=== PATIENT | female | born 1950 | race Two or more races ===

== ENCOUNTER 2021-10-19 06:08 | Inpatient (IN) | payer OTHER ==
[2021-10-19] VITALS (9 sets, daily range): BP systolic 100–130; BP diastolic 46–76
[~2021-10-19] VITALS: Ht 162.6 cm; Wt 68.0 kg
[~2021-10-19 06:08] MED LIST: ALEN70TA74 PO; ATEN-60 PO; CALC667C5 PO; FOLITAB22 OR; LEVO75TA6 PO; METH2.5T PO
[2021-10-19] MEDS ORDERED: BUPIVACAINE W/ EPINEPH 0.5% INJ 50ML MDV IJ ONE (06:47)
[2021-10-19] MEDS ORDERED: TRANEXAMIC ACID 20 ML ONE (06:47)
[2021-10-19] MEDS ORDERED: VANCOMYCIN HCL 1000 MG VL ONE ×2 (06:49→07:06)
[2021-10-19] MEDS ORDERED: PREGABALIN CAPSULE 75 MG CAP PO ONE (07:00)
[2021-10-19] MEDS ORDERED: ACETAMINOPHEN IV 1000 MG/100ML (10MG/ML) IV ONE (07:00)
[2021-10-19] MEDS ORDERED: CELECOXIB 100 MG CAP PO ONE (07:00)
[2021-10-19] MEDS ORDERED: KETOROLAC TROMETH 30 MG/ML 1ML VIAL ONE (07:00)
[2021-10-19] MEDS ORDERED: ACETAMINOPHEN IV 100 ML IV ONE (07:07)
[2021-10-19] MEDS ORDERED: PREGABALIN CAPSULE 75 MG CAP ONE (07:07)
[2021-10-19] MEDS ORDERED: CELECOXIB 100 MG CAP ONE (07:07)
[2021-10-19] MEDS ORDERED: MORPHINE SULFATE 4 MG/ML SYR/VIAL ONE (07:09)
[2021-10-19] MEDS ORDERED: TETRACAINE 1% INJ 2 ML VIAL IJ ONE (07:11)
[2021-10-19] MEDS ORDERED: MIDAZOLAM HCL 2MG/2ML 2ml VIAL (1mg/ml) ONE (07:19)
[2021-10-19] MEDS ORDERED: fentaNYL CITRATE 100 MCG/2 ML VL ONE (07:19)
[2021-10-19] MEDS ORDERED: MORPHINE SULF PF 5 MG/10 ML VIAL ONE (07:24)
[2021-10-19] MEDS ORDERED: DexAMETHasone SOD PHOS 10MG/1ML VIAL INJ ONE (08:04)
[2021-10-19] MEDS ORDERED: PROPOFOL 10 MG/ML 20 ML IV ONE (08:09)
[2021-10-19] MEDS ORDERED: BISACODYL 5 MG EC TAB PO PRN (08:15)
[2021-10-19] MEDS ORDERED: KETOROLAC TROMETH 30 MG/ML 1ML VIAL IV PRN (08:15)
[2021-10-19] MEDS ORDERED: ceFAZolin 1GM/50ML 50 ML IV SCH (08:15)
[2021-10-19] MEDS: LACTATED RINGER'S 1,000 ML IV SCH ×2 (08:15→18:18)
[2021-10-19] MEDS ORDERED: NITROGLYCERIN 0.4 MG SL TAB SL PRN (08:15)
[2021-10-19] MEDS ORDERED: MORPHINE SULFATE INJ 2 MG/ml SYRG IV PRN (08:15)
[2021-10-19] MEDS ORDERED: ONDANSETRON ODT 4 MG TAB PO PRN (08:15)
[2021-10-19] MEDS ORDERED: MIDAZOLAM HCL 2MG/2ML 2ml VIAL (1mg/ml) IV PRN (09:15)
[2021-10-19] MEDS ORDERED: ePHEDrine SULFATE 50 MG/ML AMP IV PRN (09:15)
[2021-10-19] MEDS ORDERED: LABETALOL HCL 5 MG/ML 4ML SYRINGE IV PRN (09:15)
[2021-10-19] MEDS ORDERED: NALOXONE HCL 0.4 MG/ML VIAL IV PRN (09:15)
[2021-10-19] MEDS ORDERED: DexAMETHasone SOD PHOS 10MG/1ML VIAL INJ IV PRN (09:15)
[2021-10-19] MEDS ORDERED: HYDROmorphone HCL 2 MG/ML VL/or syr IV PRN (09:15)
[2021-10-19] MEDS ORDERED: ONDANSETRON HCL 4 MG/2 ML VIAL IV PRN (09:15)
[2021-10-19] MEDS ORDERED: diphenhdrAMINE HCL 50 MG/1 ML VL IV PRN (09:15)
[2021-10-19] MEDS ORDERED: NALBUPHINE HCL 10 MG/1ml INJECTION SUBCUT ONE (09:15)
[2021-10-19] MEDS: CALCIUM ACETATE 667 MG CAP PO SCH (10:00)
[2021-10-19] MEDS: ATENOLOL 25 MG TAB PO SCH (10:00)
[2021-10-19] MEDS: DOCUSATE SOD 100 MG CAP PO SCH ×2 (10:00→22:23)
[2021-10-19] MEDS: LEVOTHYROXINE SODIUM 50 MCG TAB PO SCH (10:00)
[2021-10-19] MEDS ORDERED: ENOXAPARIN SOD 40 MG/0.4 ML SYRINGE SC SCH (10:00)
[2021-10-19] MEDS: PANTOPRAZOLE 40 MG TAB PO SCH (10:00)
[2021-10-19] MEDS: LEVOTHYROXINE SODIUM 25 MCG TAB PO SCH (10:00)
[2021-10-19] MEDS: SODIUM CHLOR 0.9% PF (SALINE LOCK) 10ML VIAL/SYR IV SCH ×2 (14:00→22:22)
[2021-10-20] VITALS (10 sets, daily range): BP systolic 100–137; BP diastolic 54–94
[2021-10-20] MEDS: LACTATED RINGER'S 1,000 ML IV SCH ×2 (04:15→15:58)
[2021-10-20 05:27] LABS: Hematocrit 32.3 % (36.0-46.0); Hemoglobin 10.8 g/dL (12.2-16.2)
[2021-10-20 05:39] LABS: Potassium 4.2 mmol/L (3.5-5.1)
[2021-10-20 05:43] LABS: Albumin 2.8 g/dL (3.4-5.0); BUN/Creatinine Ratio 22.7; Calcium 8.2 mg/dL (8.5-10.1)
[2021-10-20 05:47] LABS: Bilirubin, Total 0.4 mg/dL (0.2-1.0); Total Protein 5.5 g/dL (6.4-8.2)
[2021-10-20] MEDS: SODIUM CHLOR 0.9% PF (SALINE LOCK) 10ML VIAL/SYR IV SCH ×3 (05:58→21:53)
[2021-10-20] MEDS: LEVOTHYROXINE SODIUM 25 MCG TAB PO SCH (10:00)
[2021-10-20] MEDS: LEVOTHYROXINE SODIUM 50 MCG TAB PO SCH (10:00)
[2021-10-20] MEDS: DOCUSATE SOD 100 MG CAP PO SCH ×2 (10:44→21:53)
[2021-10-20] MEDS: CALCIUM ACETATE 667 MG CAP PO SCH (10:45)
[2021-10-20] MEDS: PANTOPRAZOLE 40 MG TAB PO SCH (10:46)
[2021-10-20] MEDS: ATENOLOL 25 MG TAB PO SCH (10:47)
[2021-10-20] MEDS: ONDANSETRON HCL 4 MG/2 ML VIAL IV PRN (12:21)
[2021-10-20] MEDS: HYDROmorphone HCL 2 MG/ML VL/or syr IV PRN ×2 (12:22→19:50)
[2021-10-21] VITALS (7 sets, daily range): BP systolic 123–170; BP diastolic 81–95
[2021-10-21] MEDS: LACTATED RINGER'S 1,000 ML IV SCH ×3 (00:15→20:15)
[2021-10-21] MEDS: ONDANSETRON HCL 4 MG/2 ML VIAL IV PRN (00:51)
[2021-10-21] MEDS: HYDROmorphone HCL 2 MG/ML VL/or syr IV PRN ×2 (00:51→19:36)
[2021-10-21] MEDS: SODIUM CHLOR 0.9% PF (SALINE LOCK) 10ML VIAL/SYR IV SCH ×3 (06:35→22:34)
[2021-10-21] MEDS: LEVOTHYROXINE SODIUM 25 MCG TAB PO SCH (06:36)
[2021-10-21] MEDS: LEVOTHYROXINE SODIUM 50 MCG TAB PO SCH (06:36)
[2021-10-21] MEDS: OXYCODONE W/ ACETAMINOPHEN 5/325MG TABLET PO PRN ×3 (07:00→22:44)
[2021-10-21 07:37] LABS: Hematocrit 31.2 % (36.0-46.0); Hemoglobin 10.5 g/dL (12.2-16.2)
[2021-10-21] MEDS: CALCIUM ACETATE 667 MG CAP PO SCH (09:15)
[2021-10-21] MEDS: DOCUSATE SOD 100 MG CAP PO SCH ×2 (09:15→22:00)
[2021-10-21] MEDS: ATENOLOL 25 MG TAB PO SCH (09:17)
[2021-10-21] MEDS: PANTOPRAZOLE 40 MG TAB PO SCH (09:19)
[2021-10-21] MEDS ORDERED: IOHEXOL 350 MG/ML 100ML IJ ONE (13:54)
== END 2021-10-21 23:30 | disposition home health service (06) | DRG 470 ==
LOC: SUR 06:08 → OVERFLOW 08:15 → WEST WING 12:22
PROVIDERS: ADMIT Orthopaedic Surgery Adult Reconstructive Orthopaedic Surgery; ATTEND Orthopaedic Surgery
PROC: 8E0YXBZ Computer Assisted Procedure of Lower Extremity (ICD-10-PCS; 2021-10-19)
PROC: 0SRD0J9 Replacement of Left Knee Joint with Synthetic Substitute, Cemented, Open Approach (ICD-10-PCS; principal; 2021-10-19 07:22)
PROC: 05HC33Z Insertion of Infusion Device into Left Basilic Vein, Percutaneous Approach (ICD-10-PCS; 2021-10-21)
PROC: B54NZZA Ultrasonography of Left Upper Extremity Veins, Guidance (ICD-10-PCS; 2021-10-21)
DX: M17.12 Unilateral primary osteoarthritis, left knee (principal); Z20.822 Contact with and (suspected) exposure to COVID-19; Z88.0 Allergy status to penicillin; I11.9 Hypertensive heart disease without heart failure
CPT/HCPCS: 36415; 36600; 71275; 73562; 80053; 82805; 85014; 85018; 86850; 86900; 86901; 97110; 97116; 97530; G0378; J0131; J1100; J1885; J2250; J2405; J2704